=== PATIENT | male | born 1955 | race Caucasian/White ===

== ENCOUNTER 2020-11-02 07:25 | Day surgery (SDC) | payer BC ==
[2020-11-02] MEDS ORDERED: Lactated Ringers 1,000 ML IV SCH (07:30)
[2020-11-02] MEDS ORDERED: DIPRIVAN 200 MG/20 ML IV ONE ×4 (08:20→09:03)
[2020-11-02] MEDS ORDERED: Xylocaine-Mpf 2% 5 Ml Vial ONE (08:28)
[2020-11-02] MEDS ORDERED: Lactated Ringers 1,000 ML IV ONE (08:53)
[2020-11-02 10:59] VITALS: BP 168/100; PULSE 60; O2SAT 100
--- NOTE | 2020-11-04 10:15 | OP ---
SURGERY DATE/TIME: 11/02/202028 PREOPERATIVE DIAGNOSIS: History of rectal bleeding, history of polyps, history of diverticulosis. POSTOPERATIVE DIAGNOSES: 1) Small early polyp versus hyperplastic lesion sigmoid colon. 2) Moderate to severe diverticulosis. 3) Grade II to III internal and external hemorrhoids (likely source of recent rectal bleeding). 4) ASA Class 2. 5) Withdrawal time around 12 minutes. PROCEDURES: 1) Colonoscopy to cecum. 2) Hot biopsy small early polyp versus hyperplastic lesion sigmoid colon. 3) Internal hemorrhoid banding x3 columns. SURGEON: Dr. Gerard Mario. ANESTHESIA: MAC. ESTIMATED BLOOD LOSS: Minimal. INDICATIONS: As noted above. Risks and benefits explained in detail but not limited to and consent was obtained. Prep overall was fair. DESCRIPTION OF PROCEDURE AND FINDINGS: The patient is taken to the endoscopy room. MAC anesthesia introduced. After official time out and no disagreement with planned procedure, digital rectal exam did not reveal any new rectal masses. Prostate seems to be unchanged from previous. Video colonoscope carefully inserted up the tortuous sigmoid, descending, transverse colon around to the proximal ascending colon requiring position changes and two staff members putting pressure on the abdomen to be able to see over the edge of the ileocecal valve. Ileocecal valve and appendiceal orifice area were photo documented. The scope slowly and carefully withdrawn over the next 12 minutes stopping to suction. Prep overall was fair with some liquidy semisolid stool suction irrigated as well as possible with a few solid stool chunks and some diverticula. The scope is slowly and carefully withdrawn. There were no signs of any large polyps, masses or obstructing lesions. He did have moderate to severe diverticulosis in the left colon. He did have some small 2 mm early polyp versus hyperplastic lesion removed with hot biopsy forceps and brief bursts of cautery in the sigmoid colon. Scope carefully pulled back. He did have some grade II to III internal and external hemorrhoids. He had the rectal bleeding. It was felt that this warranted as he preferred to have a trial internal hemorrhoid banding. As the scope was withdrawn and remained under MAC anesthesia, half-hills lubricated retractor carefully inserted. Suction political analyst carefully applied first to left lateral position and the right posterior position and to the right anterior sigmoidal column position and a good tuft of tissue grasping the top edge of the internal hemorrhoid hopefully acquiring decent amount of material and a good tuft of tissue in all three locations. Otherwise the patient tolerated the procedure well. There were no immediate complications. Findings discussed with his out in the waiting area.
--- NOTE | 2020-11-04 15:53 | HP ---
DATE OF SURGERY: 11/02/2020 HISTORY OF PRESENT ILLNESS: The patient is a 65 year-old with some history of rectal bleeding, history of some diverticulosis in the past. History of COVID infection several months ago and has been vaccinated since then. He has prior history of polyps in the past. He is in need of follow up screening colonoscopy. PAST MEDICAL HISTORY: He had hernia repair in the past. Benign prostatic hypertrophy. PAST SURGICAL HISTORY: Tonsillectomy. Colonoscopy. MEDICATIONS: Metoprolol, dutasteride as well as he had some Benicar. ALLERGIES: NKDA. FAMILY HISTORY: Negative in regards to this problem. SOCIAL HISTORY: No smoking or alcohol abuse. REVIEW OF SYSTEMS: Fourteen systems reviewed per admission assessment. PHYSICAL EXAMINATION: GENERAL: No acute distress. HEENT: Sclerae nonicteric. NECK: No JVD. CHEST: Equal excursion, nonlabored breathing. CVS: Regular rate and rhythm. ABDOMEN: Soft. EXTREMITIES: No cyanosis. NEURO: Alert, moving extremities symmetrically. PSYCH: Appropriate mood and affect. IMPRESSION: History of polyps, history of some rectal bleeding. He is in need of follow up colonoscopy. Discussed the options of possible internal hemorrhoid banding. General risk of bleeding or infection, risk of bowel injury or perforation, risk of missed, nondiagnosis or incomplete exam, risk of progression of hemorrhoid disease, preoperative risk of bleeding, general risk of anesthesia or sedation but not limited to, consent obtained, will proceed with colonoscopy, possible internal hemorrhoid banding if indicated as an outpatient.
== END 2020-11-02 10:55 | disposition home or self-care (01) ==
LOC: SDC 07:25
PROVIDERS: ATTEND Surgery
DX: Z09 Encounter for follow-up examination after completed treatment for conditions other than malignant neoplasm (principal); Z86.010 Personal history of colon polyps; Z87.19 Personal history of other diseases of the digestive system; K64.1 Second degree hemorrhoids; K64.2 Third degree hemorrhoids; K63.5 Polyp of colon; K57.30 Diverticulosis of large intestine without perforation or abscess without bleeding
CPT/HCPCS: J2704